=== PATIENT | female | born 1985 | race Caucasian/White ===

== ENCOUNTER 2016-10-28 15:46 | Outpatient (CLI) | payer MEDICAID | END 2016-10-28 15:47 | disposition home or self-care (01) | DX: Z11.3 Encounter for screening for infections with a predominantly sexual mode of transmission (principal); N76.0 Acute vaginitis ==

== ENCOUNTER 2016-11-27 09:39 | Outpatient (CLI) | payer MEDICAID | END 2016-11-27 09:40 | disposition home or self-care (01) | DX: A56.02 Chlamydial vulvovaginitis (principal) ==

== ENCOUNTER 2016-12-30 10:24 | Outpatient (CLI) | payer MEDICAID | END 2016-12-30 10:25 | disposition home or self-care (01) | DX: Z20.2 Contact with and (suspected) exposure to infections with a predominantly sexual mode of transmission (principal) ==

== ENCOUNTER 2017-03-02 07:17 | Outpatient (CLI) | payer MEDICAID | END 2017-03-02 07:18 | disposition home or self-care (01) | LOC: LAB.R 07:17 | PROVIDERS: ATTEND Physician Assistant | DX: Z20.2 Contact with and (suspected) exposure to infections with a predominantly sexual mode of transmission (principal) | CPT/HCPCS: 87491; 87591 ==

== ENCOUNTER 2017-03-30 08:46 | Outpatient (CLI) | payer MEDICAID | END 2017-03-30 08:47 | disposition home or self-care (01) | LOC: LAB.N 08:46 | PROVIDERS: ATTEND Physician Assistant | DX: Z20.2 Contact with and (suspected) exposure to infections with a predominantly sexual mode of transmission (principal) | CPT/HCPCS: 87491; 87591 ==

== ENCOUNTER 2017-04-10 07:45 | Outpatient (CLI) | payer MEDICAID | END 2017-04-10 07:46 | disposition home or self-care (01) | LOC: LAB.N 07:45 | PROVIDERS: ATTEND Physician Assistant | DX: Z11.3 Encounter for screening for infections with a predominantly sexual mode of transmission (principal) | CPT/HCPCS: 87491; 87591 ==

== ENCOUNTER 2017-07-17 06:37 | Outpatient (CLI) | payer MEDICAID ==
[2017-07-18 04:08] LABS: TEST RESULT REPORT
[2017-07-20 16:02] LABS: TEST RESULT REPORT
== END 2017-07-17 06:38 | disposition home or self-care (01) ==
LOC: LAB.N 06:37
PROVIDERS: ATTEND Nurse Practitioner Gerontology
DX: Z11.3 Encounter for screening for infections with a predominantly sexual mode of transmission (principal)
CPT/HCPCS: 36415; 81599; 86592; 86695; 86696; 86803; 87389; 87491; 87591

== ENCOUNTER 2017-09-23 14:14 | Outpatient (CLI) | payer MEDICAID ==
--- NOTE | 2017-09-27 16:27 | DEXA Report ---
DEXA: 09/23/2017. CLINICAL INDICATION: Depo use. TECHNIQUE: Dual energy x-ray absorptiometry (DXA) was performed on a [employer] system. Regions measured are the AP spine, femoral neck, and, if needed, forearm. COMPARISON: None. In accordance with the International Society for Clinical Densitometry (ISCD) guidelines, data from previous exams may be reanalyzed using current recommendations and techniques. This is done to allow a more accurate basis for comparison with the current study. FINDINGS The data for the lumbar spine is as follows: REGION BMD (g/cm/cm) T-SCORE Z-SCORE L1 1.179 0.4 -0.6 L2 1.387 1.6 0.5 L3 1.354 1.3 0.3 L4 1.175 -0.2 -1.2 L1-L4 1.272 0.8 -0.2 NOTE: All evaluable vertebrae are used for classification. The data for the hip is as follows: REGION BMD (g/cm/cm) T-SCORE Z-SCORE Neck 0.998 -0.3 -0.8 TOTAL 1.029 0.2 -0.5 NOTE: The femoral neck or total proximal femur, whichever is lowest, is used for classification. IMPRESSION THE WHO CLASSIFICATION BASED ON THE INTERNATIONAL REFERENCE STANDARD IS NORMAL. THE FRACTURE RISK IS NOT INCREASED. RECOMMENDATION: Patients with diagnosis of osteoporosis or osteopenia should have regular bone mineral density assessment. For those eligible for Medicare, routine testing is allowed once every 2 years. Testing frequency can be increased for patients who have rapidly progressing disease or for those who are receiving medical therapy to restore bone mass. COMMENT: World Health Organization (WHO) definitions for osteoporosis and osteopenia: NORMAL BMD: T-score at 1.0 or higher, fracture risk is low. OSTEOPENIA BMD: T-score between 1.0 and -2.5, fracture risk is increased. OSTEOPOROSIS BMD: T-score at 2.5 or lower, fracture risk high. National Osteoporosis Foundation recommends: 1. Obtain adequate dietary calcium (at least 1200 mg per day) and vitamin D (400 -800 international units per day). 2. Participate, as appropriate, in regular weightbearing and muscle- strengthening exercise. 3. Avoid tobacco use and reduce alcohol and caffeine intake. 4. For more detailed information see the website at www.NOF.org. TD: 09/24/2017 17:30 MTDD
== END 2017-09-23 14:15 | disposition home or self-care (01) ==
LOC: DI 14:14
PROVIDERS: ATTEND Nurse Practitioner Gerontology
DX: Z91.89 Other specified personal risk factors, not elsewhere classified (principal)
CPT/HCPCS: 77080

== ENCOUNTER 2017-10-21 10:27 | Outpatient (CLI) | payer MEDICAID ==
[2017-10-22 14:16] LABS: HIV AG/AB 4TH GEN NON-REACTIVE (NON-REACTIVE)
[2017-10-23 12:10] LABS: HSV 1 IGG TYPE SPECIFIC AB 13.7 index; HSV 2 IGG TYPE SPECIFIC AB 18.8 index
== END 2017-10-21 10:28 | disposition home or self-care (01) ==
LOC: LAB 10:27
PROVIDERS: ATTEND Nurse Practitioner Obstetrics & Gynecology
DX: N76.0 Acute vaginitis (principal)
CPT/HCPCS: 36415; 81599; 86695; 86696; 87086; 87389; 87529

== ENCOUNTER 2017-10-21 10:29 | Outpatient (CLI) | payer MEDICAID ==
[2017-10-23 14:06] LABS: HSV 2 DNA NOT DETECTED; SOURCE SWAB
== END 2017-10-21 10:30 | disposition home or self-care (01) ==
LOC: LAB.R 10:29
PROVIDERS: ATTEND Nurse Practitioner Obstetrics & Gynecology
DX: R30.0 Dysuria (principal); N76.0 Acute vaginitis
CPT/HCPCS: 87086; 87529

== ENCOUNTER 2017-12-16 09:13 | Day surgery (SDC) | payer MEDICAID ==
--- NOTE | 2017-12-14 15:02 | PREOP HISTORY & PHYSICAL ---
DATE OF SERVICE: 12/14/2017 Physician: Adalgisa Madrid, DO PREOPERATIVE HISTORY & PHYSICAL 12/14/2017 FOR ANTICIPATED DATE OF PROCEDURE: 12/16/2017 IDENTIFICATION: This is a 32-year-old, G1, P1-0-0-1. HISTORY OF PRESENT ILLNESS: The patient presents today for her preoperative visit. She has been scheduled for a 12/16/2017 laparoscopic bilateral salpingectomy. I had a discussion with the patient on 11/16/2017 regarding her options of control. They included the pill, the patch, NuvaRing, Nexplanon, Depo-Provera, and the IUDs. The patient is from her [facility] for over 2 years. The patient's daughter, Dena, is 4 years old now , and the patient does not want any more children. I discussed with her the risks, benefits, alternatives, indications, expectations of laparoscopic bilateral salpingectomy. Included in our discussion were the risk of hemorrhage , infection, damage to surrounding organs. With respect to damage to surrounding organs, this may include, but is not limited to, inadvertent laceration, cauterization or ligation of adjacent intestines, bladder, and ureters. This procedure is meant to be permanent and irreversible. Should she desire genetic children after this procedure, she would need to do in vitro fertilization, which is upwards of $30,000 currently. The most common complication with this procedure is regret. Also though the procedure may be performed ideally, there is intrinsic tubal failure risk of less than 1%. Should she feel that she is after this procedure, she is to call me immediately. After her questions were answered to her satisfaction, she verbalized her desire to proceed with surgery. Consent forms have been signed. Currently, she denies any nausea, vomiting, fevers, chills, diarrhea, constipation. PAST MEDICAL HISTORY 1. Obesity. 2. She denies any hypertension, diabetes, or thyroid disorder. PAST SURGICAL HISTORY 1. In 2002, tonsillectomy. 2. In 2013, delivery. 3. In 2013, laparoscopic cholecystectomy. ALLERGIES: NO KNOWN DRUG ALLERGIES. MEDICATIONS: None RX: Her pharmacy of choice is [facility] in [place], [place]. SOCIAL HISTORY: She denies any tobacco use. She does consume alcohol on a social basis. She denies any illicit drug use. She has a daughter, Dena, and she currently works at [employer]. PAST OBSTETRICAL HISTORY: One term delivery secondary to nonreassuring heart tones. PAST GYNECOLOGIC HISTORY: She does have HSV in which she needs to take acyclovir occasionally. She denies any abnormal Pap smears. FAMILY HISTORY: She denies any female carcinoma. REVIEW OF SYSTEMS: Negative unless otherwise stated. PHYSICAL EXAMINATION VITAL SIGNS: Weight is 210 pounds, height is 66 inches, BMI is 33.9. Blood pressure 122/84 GENERAL: She is a well-developed, well-nourished, female, in no apparent distress. She is alert and oriented x3. She is very pleasant and easy to speak to. CARDIOVASCULAR: Rate is regular. No murmurs or rubs. LUNGS: Lungs are clear to auscultation bilaterally. ABDOMEN: Soft, nontender. No masses, rebound, rigidity or guarding. She does have a well-healed Pfannenstiel skin incision as well as laparoscopic incisions from her 2014 cholecystectomy. ASSESSMENT 1. A 32-year-old, G1, P1-0-0-1. 2. Desired permanent sterilization. PLAN 1. We will proceed to a scheduled 12/16/2017 laparoscopic bilateral salpingectomy for sterilization. 2. She will get a urinalysis for test previous to surgery. 3. Prescriptions for pain control have been given to her. Handwritten prescription for Vicodin and a prescription for Motrin has been faxed to [facility]. 4. Anticipate seeing her in 2 weeks for routine 2-week postop visit. 5. We will do STD check on her after her postop visit since she is concerned that her boyfriend did not completely take his prescription for Flagyl. TD: 12/14/2017 12:30 ANICETO
[2017-12-16] MEDS ORDERED: CELECOXIB 100 MG CAPSULE PO ONE (09:15)
[2017-12-16] MEDS ORDERED: LACTATED RINGERS 1,000 ML IV ONE (09:35)
[2017-12-16] MEDS ORDERED: LIDOCAINE 1%-EPI 1:100000 20 ML MDV ONE (09:55)
[2017-12-16 09:56] LABS: HCG UR QUAL NEGATIVE
[2017-12-16] MEDS ORDERED: GLYCOPYRROLATE 1 MG/5 ML VIAL IVP ONE (11:00)
[2017-12-16] MEDS ORDERED: fentaNYL 250 MCG/5 ML VIAL IVP ONE (11:00)
[2017-12-16] MEDS ORDERED: PROPOFOL 200 MG/20 ML VIAL IVP ONE (11:00)
[2017-12-16] MEDS ORDERED: MIDAZOLAM 2 MG/2 ML VIAL IVP ONE (11:00)
[2017-12-16] MEDS ORDERED: DEXAMETHASONE 4 MG/ML VIAL IVP ONE (11:00)
[2017-12-16] MEDS ORDERED: ONDANSETRON 4 MG/2 ML VIAL IVP ONE (11:00)
[2017-12-16] MEDS ORDERED: KETOROLAC 30 MG/ML VIAL IVP ONE (11:00)
[2017-12-16] MEDS ORDERED: ROCURONIUM 50 MG/5 ML VIAL IVP ONE (11:00)
[2017-12-16] MEDS ORDERED: LIDOCAINE-MPF 2% 5 ML VIAL IM ONE (11:00)
[2017-12-16] MEDS ORDERED: LIDOCAINE 1%-EPI 1:100000 20 ML MDV SUBQ ONE ×2 (11:12)
[2017-12-16] MEDS ORDERED: BUPIVACAINE 0.5% PF 10 ML VIAL ONE (11:28)
[2017-12-16] MEDS ORDERED: BUPIVACAINE 0.5% PF 10 ML VIAL IM ONE (11:29)
--- NOTE | 2017-12-16 11:38 | OPERATIVE REPORT ---
Operative Report - General Procedure Date: 12/16/17 Planned Procedure: Sterilization via bilateral salpingectomy; possible lysis of adhesions Pre-Op Diagnosis: Desires sterilization, prior surgical history Procedure Performed: Laparoscopic bilateral salpingectomy; diagnostic laparoscopy Post Op Diagnosis: See sterilization; no significant intra-abdominal adhesions; No evidence of - Other Other Information/Narrative: Uneventful bilateral salpingectomy was accomplished. There was no evidence of endometriosis in the cul-de-sac ovaries or tubes. There was a filmy colonic adhesion at the pelvic brim there was stable not significant. There was evidence of fatty liver and the gallbladder bed was empty.
[2017-12-16] MEDS: HYDROmorphone 1 MG/ML CARPUJECT ONE ×2 (11:59→12:15)
[2017-12-16] MEDS ORDERED: ACETAMINOPHEN 1,000 MG/100 ML 100 ML IV ONE (12:20)
[2017-12-16 13:15] VITALS: BP 100/82
--- NOTE | 2017-12-16 15:46 | OPERATIVE REPORT ---
DATE OF SERVICE: 12/16/2017 Physician: Silvestre Lee MD PREOPERATIVE DIAGNOSES 1. Desires sterilization. 2. Prior history of surgery ( section and laparoscopic cholecystectomy) . 3. Obesity. POSTOPERATIVE DIAGNOSES 1. Desires sterilization. 2. Prior history of surgery ( section and laparoscopic cholecystectomy) . 3. Obesity. 4. Fatty liver. 5. No evidence of endometriosis or significant adhesions. PROCEDURES 1. Laparoscopic bilateral salpingectomy. 2. Diagnostic laparoscopy. SURGEON: Silvestre Lee MD, FACOG, FICS JUNIOR NETWORK ENGINEER: Hansa Aguilar, certified nurse pastrycook. ANESTHESIA TYPE: General, ET tube placed. BLOOD LOSS: Minimal, less than 50 mL. COMPLICATIONS: None. IVF: 1000 URINE: 100 FINDINGS Patient is morbidly obese with a Pfannenstiel scar that appears to be well healed and not adherent to the underlying fascia. There is no evidence of umbilical hernia or other hernias. Exam of the genitalia finds no vulvar lesions. Vagina has no significant prolapse. Cervix is normal in appearance without lesions. Uterus retroverted, retroflexed and normal size with normal contour. Both tubes appear to be open and fluffy. Tubes are normal with follicular activity present. Search of anterior and posterior cul-de-sac and ovarian fossa finds no endometriosis. There is a small filmy adhesion between the rectal colon at the pelvic brim that is not significant. Gallbladder is absent, but the liver appears to be with fatty changes. The appendix was not well seen. TECHNIQUE: Prior to the procedure, I met the patient and reviewed Dr. Madrid's history. We discussed the risks, benefits, and alternatives to her current surgery. She is aware that this is permanent sterilization, and if she has any doubts she should wait. Informed consent paperwork was then signed. Patient was brought to the operating room and placed in a supine position for administration of general anesthesia. She was uneventfully induced and intubated. She was then moved to the low dorsal lithotomy position on [facility]. She was prepped and draped in a customary sterile fashion. Timeout briefing was done per protocol. Bladder was drained, and a HUMI manipulator was placed. Small puncture wound was placed under the umbilical skin fold and direct entry technique used with a 5 mm Visiport trocar. The abdomen was insufflated with CO2 gas at 12 mm of pressure. Next, under direct visualization, right and left lower quadrant ports were placed. The abdomen was assessed and photographed. The right tube was then identified, grasped, and placed on medial tension. The mesenteric portion of the tube was then desiccated and divided using LigaSure. It was then removed intact and marked with a suture. Next, left tube was grasped, elevated, and removed in a similar fashion uneventfully. We checked all operative sites to ensure there was no unnoticed bleeding. At this point, the procedure was concluded. Patient remained in a 20 to 30-degree Trendelenburg as 1 liter of normal saline containing 10 mg of Marcaine was then instilled in the abdominal cavity. The fluid was then used to displace any CO2, and all CO2 was removed via the 5 mm trocars. Trocars were removed. The skin was closed with interrupted subcuticular stitches of 4-0 Monocryl and dressed with Dermabond. Additional 20 mL of 0.5% Marcaine was placed into the wounds. HUMI uterine manipulator was uneventfully removed. Patient was returned to supine. She was uneventfully awakened and taken to the recovery room in good condition. Intraoperative events were reviewed with the patient postop. She is scheduled for pathology and wound check in 2 weeks. Patient was prepared for discharge. Warning sign and callback instructions were reviewed. DISCHARGE MEDICATIONS 1. Motrin 600 mg q.6 hours for a 7-day course. 2. Hydrocodone 5 mg q.4 hours p.r.n. breakthrough pain. 3. Colace 250 b.i.d. for constipation prevention. TD: 12/16/2017 13:08 ANICETO
== END 2017-12-16 09:14 | disposition home or self-care (01) ==
LOC: SDS 09:13
PROVIDERS: ATTEND Obstetrics & Gynecology
PROC: 0UT74ZZ Resection of Bilateral Fallopian Tubes, Percutaneous Endoscopic Approach (ICD-10-PCS; principal; 2017-12-16 10:30)
DX: Z30.2 Encounter for sterilization (principal); E66.9 Obesity, unspecified; Z68.33 Body mass index [BMI] 33.0-33.9, adult; K76.0 Fatty (change of) liver, not elsewhere classified; Z90.49 Acquired absence of other specified parts of digestive tract
CPT/HCPCS: 58661; 81025; A9270; J0131; J1170; J3010; J7120

== ENCOUNTER 2017-12-30 10:00 | Outpatient (CLI) | payer MEDICAID | END 2017-12-30 10:01 | disposition home or self-care (01) | LOC: LAB.R 10:00 | PROVIDERS: ATTEND Nurse Practitioner Obstetrics & Gynecology | DX: N76.0 Acute vaginitis (principal); Z11.3 Encounter for screening for infections with a predominantly sexual mode of transmission; K76.0 Fatty (change of) liver, not elsewhere classified | CPT/HCPCS: 36415; 80053; 80061; 82977; 83721; 87480; 87491; 87510; 87591; 87660 ==

== ENCOUNTER 2017-12-30 11:31 | Outpatient (CLI) | payer MEDICAID ==
[2017-12-30 13:38] LABS: ALBUMIN 4.2 g/dL (3.2-5.5); ALBUMIN/GLOBULIN RATIO 1.3 (1.0-2.2); ALKALINE PHOSPHATASE 51 IU/L (42-121); ALT ALANINE AMINOTRANSFERASE 26 IU/L (10-60); AST ASPARTATE AMINOTRANSFERASE 21 IU/L (10-42); BILIRUBIN,TOTAL 0.4 mg/dL (0.2-1.0); BUN - BLOOD UREA NITROGEN 15 mg/dL (6-20); CALCIUM 8.9 mg/dL (8.5-10.3); CARBON DIOXIDE - CO2 27 mmol/L (21-32); CHLORIDE 105 mmol/L (101-111); CHOL/HDL RATIO 4.1 (<4.4); CHOLESTEROL 170 mg/dL; CREATININE 0.5 mg/dL (0.4-1.0); GAMMA GLUTAMYL TRANSPEPTIDASE 16 IU/L (8-38); GFR - MDRD 144 (>89); GLUCOSE 86 mg/dL (70-100); HDL CHOLESTEROL 41 mg/dL; LDL CHOLESTEROL,CALCULATED 120 mg/dL; LDL/HDL RATIO 2.9 (<4.4); SODIUM 137 mmol/L (135-145); TOTAL PROTEIN 7.5 g/dL (6.7-8.2); VLDL CHOLESTEROL 9 mg/dL
== END 2017-12-30 11:32 | disposition home or self-care (01) ==
LOC: LAB.N 11:31
PROVIDERS: ATTEND Nurse Practitioner
DX: K76.0 Fatty (change of) liver, not elsewhere classified (principal)
CPT/HCPCS: 36415; 80053; 80061; 82977; 83721

== ENCOUNTER 2018-03-10 08:00 | Outpatient (CLI) | payer MEDICAID | END 2018-03-10 08:01 | disposition home or self-care (01) | LOC: LAB.R 08:00 | PROVIDERS: ATTEND Registered Nurse | DX: Z11.3 Encounter for screening for infections with a predominantly sexual mode of transmission (principal) | CPT/HCPCS: 87480; 87491; 87510; 87591; 87660 ==

== ENCOUNTER 2018-03-10 08:00 | Outpatient (CLI) | payer MEDICAID ==
[2018-03-11 08:25] LABS: HEPATITIS C ANTIBODY NON-REACTIVE (NON-REACTIVE)
[2018-03-11 15:43] LABS: HIV AG/AB 4TH GEN NON-REACTIVE (NON-REACTIVE)
== END 2018-03-10 08:01 | disposition home or self-care (01) ==
LOC: LAB.N 08:00
PROVIDERS: ATTEND Registered Nurse
DX: Z11.3 Encounter for screening for infections with a predominantly sexual mode of transmission (principal)
CPT/HCPCS: 36415; 81599; 86592; 86803; 87389; 87480; 87491; 87510; 87591; 87660

== ENCOUNTER 2018-07-06 11:43 | Outpatient (CLI) | payer MEDICAID ==
[2018-07-07 13:36] LABS: HIV AG/AB 4TH GEN NON-REACTIVE (NON-REACTIVE)
== END 2018-07-06 11:44 | disposition home or self-care (01) ==
LOC: LAB.N 11:43
PROVIDERS: ATTEND Nurse Practitioner Gerontology
DX: Z11.3 Encounter for screening for infections with a predominantly sexual mode of transmission (principal)
CPT/HCPCS: 36415; 81599; 86592; 87389; 87491; 87591

== ENCOUNTER 2019-03-01 08:00 | Outpatient (CLI) | payer MEDICAID, OTHER ==
[2019-03-01 21:21] LABS: CANDIDA GROUP DNA NEGATIVE (NEGATIVE); CANDIDA KRUSEI DNA NEGATIVE (NEGATIVE); TRICHOMONAS VAGINALIS DNA NEGATIVE (NEGATIVE)
[2019-03-01 22:13] LABS: TRICHOMONAS VAGINALIS DNA NEGATIVE (NEGATIVE)
== END 2019-03-01 23:59 | disposition home or self-care (01) ==
LOC: LAB 08:00
PROVIDERS: ATTEND Obstetrics & Gynecology
DX: Z01.419 Encounter for gynecological examination (general) (routine) without abnormal findings (principal); Z86.19 Personal history of other infectious and parasitic diseases
CPT/HCPCS: 87491; 87591; 87661; 87801

== ENCOUNTER 2019-03-13 19:33 | Emergency (ER) | payer OTHER ==
[2019-03-13 19:42] VITALS: BP 123/67
--- NOTE | 2019-03-13 19:56 | ED Physician Documentation ---
PD HPI URI - Stated complaint Stated Complaint: COLD/SORE THROAT - Chief complaint Chief Complaint: Heent - History obtained from History obtained from: Patient - History of Present Illness Timing - onset: Other (3 weeks sore throat despite taking OTC nyquil etc. Noted exudates this morning, but has H/O tonsillectomy. Had F/C at the outset, not now. 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 SPECIALIST: section HEENT: Tonsil/Adenoidectomy, Other - Present Medications Home Medications: Ambulatory Orders Medication Instructions Recorded Confirmed Metronidazole 500 mg PO BID 03/13/19 03/13/19 - Allergies Allergies/Adverse Reactions: Allergies Allergy/AdvReac Type Severity Reaction Status Date / Time No Known Drug Allergies Allergy Verified 03/13/19 19:39 - Social History Does the pt smoke?: No Smoking Status: Never smoker Does the pt drink ETOH?: No Does the pt have substance abuse?: No - Immunizations Immunizations are current?: Yes - POLST Patient has POLST: No PD ED PE NORMAL - Vitals Vital signs reviewed: Yes - General General: Alert and oriented X 3, No acute distress - HEENT HEENT: Ears normal, Pharynx benign - Neck Neck: Supple, no meningeal sign, No bony TTP - Cardiac Cardiac: RRR, No murmur - Respiratory Respiratory: No respiratory distress, Clear bilaterally - Abdomen Abdomen: Non tender - Neuro Neuro: Alert and oriented X 3, Normal speech - Psych Psych: Normal mood, Normal affect Results - Vitals Vitals: Vital Signs - 24 hr 03/13/19 19:36 Temperature 36.8 C Heart Rate 80 Respiratory 18 Rate Blood Pressure 123/67 O2 Saturation 99 Oxygen O2 Source Room air - Labs Labs: Laboratory Tests 03/13/19 19:41 Group A Strep Rapid Negative Departure - Departure Disposition: 01 Home, Self Care Clinical Impression: Viral URI with cough Condition: Good Record reviewed to determine appropriate education?: Yes Health Concerns: URI Plan of Treatment: Conservative care, OTC meds Care Goals: wanted to make sure not strep, rapid test neg, culture to follow Instructions: ED Viral Syndrome
== END 2019-03-13 20:10 | disposition home or self-care (01) ==
LOC: ED 19:33
DX: J06.9 Acute upper respiratory infection, unspecified (principal)
CPT/HCPCS: 87070; 87430; 99282

== ENCOUNTER 2019-11-08 07:00 | Outpatient (CLI) | payer MEDICAID ==
[2019-11-09 21:27] LABS: CANDIDA GROUP DNA NEGATIVE (NEGATIVE); CANDIDA KRUSEI DNA NEGATIVE (NEGATIVE); TRICHOMONAS VAGINALIS DNA NEGATIVE (NEGATIVE)
== END 2019-11-08 23:59 | disposition home or self-care (01) ==
LOC: LAB.R 07:00
PROVIDERS: ATTEND Advanced Practice Midwife
DX: N89.8 Other specified noninflammatory disorders of vagina (principal)
CPT/HCPCS: 87661; 87801

== ENCOUNTER 2019-11-08 14:37 | Outpatient (CLI) | payer MEDICAID ==
[2019-11-09 12:02] LABS: HEPATITIS B SURFACE ANTIGEN NON-REACTIVE (NON-REACTIVE)
[2019-11-09 12:35] LABS: HEPATITIS C ANTIBODY NON-REACTIVE (NON-REACTIVE)
[2019-11-09 13:47] LABS: HIV AG/AB 4TH GEN NON-REACTIVE (NON-REACTIVE)
== END 2019-11-08 14:38 | disposition home or self-care (01) ==
LOC: LAB 14:37
PROVIDERS: ATTEND Advanced Practice Midwife
DX: Z11.3 Encounter for screening for infections with a predominantly sexual mode of transmission (principal); N89.8 Other specified noninflammatory disorders of vagina
CPT/HCPCS: 36415; 81599; 86592; 86803; 87340; 87389; 87661; 87801

== ENCOUNTER 2019-11-30 07:00 | Outpatient (CLI) | payer MEDICAID ==
[2019-11-30 20:51] LABS: TRICHOMONAS VAGINALIS DNA NEGATIVE (NEGATIVE)
[2019-11-30 22:03] LABS: CANDIDA GROUP DNA POSITIVE (NEGATIVE); CANDIDA KRUSEI DNA NEGATIVE (NEGATIVE); TRICHOMONAS VAGINALIS DNA NEGATIVE (NEGATIVE)
== END 2019-11-30 23:59 | disposition home or self-care (01) ==
LOC: LAB.R 07:00
PROVIDERS: ATTEND Advanced Practice Midwife
DX: Z11.3 Encounter for screening for infections with a predominantly sexual mode of transmission (principal)
CPT/HCPCS: 87491; 87591; 87661; 87801

== ENCOUNTER 2020-12-03 08:00 | Outpatient (CLI) | payer MEDICAID ==
[2020-12-03 20:38] LABS: BACTERIAL VAGINOSIS DNA NEGATIVE (NEGATIVE); CANDIDA GLABRATA DNA NEGATIVE (NEGATIVE); CANDIDA GROUP DNA NEGATIVE (NEGATIVE); CANDIDA KRUSEI DNA NEGATIVE (NEGATIVE); TRICHOMONAS VAGINALIS DNA NEGATIVE (NEGATIVE)
== END 2020-12-03 23:59 | disposition home or self-care (01) ==
LOC: LAB.R 08:00
PROVIDERS: ATTEND Obstetrics & Gynecology
DX: N76.0 Acute vaginitis (principal)
CPT/HCPCS: 87661; 87801

== ENCOUNTER 2021-01-18 08:00 | Outpatient (CLI) | payer MEDICAID ==
[2021-01-18 17:56] LABS: HCT - HEMATOCRIT 39.5 % (37.0-47.0); HGB - HEMOGLOBIN 12.9 g/dL (12.0-16.0); MEAN CORPUSCULAR HEMOGLOBIN 30.4 pg (27.0-31.0); MEAN CORPUSCULAR HGB CONC 32.7 g/dL (32.0-36.0); MEAN CORPUSCULAR VOLUME 93.2 fL (81.0-99.0); MEAN PLATELET VOLUME 11.2 fL (7.9-10.8); RED BLOOD COUNT 4.24 10^6/uL (4.20-5.40); RED CELL DISTRIBUTION WIDTH 12.7 % (12.0-15.0); WHITE BLOOD COUNT 7.9 x10^3/uL (4.8-10.8)
[2021-01-18 18:19] LABS: ALBUMIN 4.3 g/dL (3.2-5.5); ALBUMIN/GLOBULIN RATIO 1.5 (1.0-2.2); ALKALINE PHOSPHATASE 53 IU/L (42-121); ALT ALANINE AMINOTRANSFERASE 13 IU/L (10-60); AST ASPARTATE AMINOTRANSFERASE 15 IU/L (10-42); BILIRUBIN,TOTAL 0.6 mg/dL (0.2-1.0); BUN - BLOOD UREA NITROGEN 20 mg/dL (6-20); CARBON DIOXIDE - CO2 25 mmol/L (21-32); CHLORIDE 104 mmol/L (101-111); CHOL/HDL RATIO 3.5 (<4.4); CHOLESTEROL 176 mg/dL; CREATININE 0.7 mg/dL (0.4-1.0); GFR - MDRD 96 (>89); GLUCOSE 102 mg/dL (70-100); HDL CHOLESTEROL 50 mg/dL; LDL CHOLESTEROL,CALCULATED 101 mg/dL; POTASSIUM 3.7 mmol/L (3.5-5.0); SODIUM 137 mmol/L (135-145); TOTAL PROTEIN 7.2 g/dL (6.7-8.2); TRIGLYCERIDES 126 mg/dL; VLDL CHOLESTEROL 25 mg/dL
[2021-01-18 18:43] LABS: THYROID STIMULATING HORMONE 0.88 uIU/mL (0.34-5.60)
[2021-01-18 20:18] LABS: ESTIMATED AVERAGE GLUCOSE 97 mg/dL (70-100)
[2021-01-19 12:06] LABS: HEPATITIS C ANTIBODY NON-REACTIVE (NON-REACTIVE)
[2021-01-19 13:11] LABS: HIV AG/AB 4TH GEN NON-REACTIVE (NON-REACTIVE)
[2021-01-19 13:42] LABS: HEPATITIS B SURFACE ANTIGEN NON-REACTIVE (NON-REACTIVE)
== END 2021-01-18 23:59 | disposition home or self-care (01) ==
LOC: LAB.WCP 08:00
PROVIDERS: ATTEND Obstetrics & Gynecology
DX: Z00.00 Encounter for general adult medical examination without abnormal findings (principal); Z13.220 Encounter for screening for lipoid disorders; Z11.3 Encounter for screening for infections with a predominantly sexual mode of transmission; K76.0 Fatty (change of) liver, not elsewhere classified; Z13.1 Encounter for screening for diabetes mellitus; E04.9 Nontoxic goiter, unspecified
CPT/HCPCS: 36415; 80053; 80061; 83036; 83721; 84443; 85027; 86592; 86803; 87340; 87389

== ENCOUNTER 2022-10-23 19:23 | Emergency (ER) | payer MEDICAID ==
[2022-10-23] MEDS ORDERED: ALBUTEROL 1 PUFF INH STA (20:14)
--- NOTE | 2022-10-23 21:05 | ED Physician Documentation ---
History of Present Illness - Stated complaint Stated Complaint: [id number],SORE THROAT - Chief complaint Chief Complaint: Resp - Additonal information Additional information: 37-year-old female presents emergency department for evaluation of 3 weeks of cough congestion. States the first week she had fevers none since however despite DayQuil and NyQuil and cough drops she continues to have a productive cough. She coughs at all times especially when taking deep breaths. She denies any chest pain. No posttussive emesis. No hemoptysis. Non-smoker. Patient is reliable historian Review of Systems Constitutional: denies: Fever, Chills Respiratory: reports: Cough. denies: Dyspnea, Hemoptysis, Wheezing PD PAST MEDICAL HISTORY - Past Medical History Past Medical History: Yes Cardiovascular: None Respiratory: Asthma Neuro: None Endocrine/Autoimmune: None GI: None THEATRICAL PERFORMER: None : None HEENT: None Psych: Anxiety Musculoskeletal: None Derm: None - Past Surgical History Past Surgical History: Yes General: Cholecystectomy /THEATRICAL PERFORMER: section HEENT: Tonsil/Adenoidectomy, Other - Present Medications Home Medications: Ambulatory Orders Medication Instructions Recorded Confirmed Albuterol Sulf [Ventolin Hfa 1 - 2 puffs INH Q4HR PRN #1 each 10/23/22 Inhaler] Azithromycin [Zithromax] 0 mg PO DAILY #6 tablet 10/23/22 Benzonatate [Tessalon] 200 mg PO TID PRN #20 cap 10/23/22 - Allergies Allergies/Adverse Reactions: Allergies Allergy/AdvReac Type Severity Reaction Status Date / Time No Known Drug Allergies Allergy Verified 03/13/19 19:39 - Social History Does the pt smoke?: No Smoking Status: Never smoker Does the pt drink ETOH?: No Does the pt have substance abuse?: No - Immunizations Immunizations are current?: Yes - POLST Patient has POLST: No PD ED PE NORMAL - General General: Alert and oriented X 3, No acute distress, Well developed/nourished - HEENT HEENT: Atraumatic, Moist mucous membranes - Neck Neck: Supple, no meningeal sign, No adenopathy - Cardiac Cardiac: RRR, No murmur - Respiratory Respiratory: No respiratory distress, Clear bilaterally - Abdomen Abdomen: Normal bowel sounds, Soft Results - Vitals Vitals: Vital Signs - 24 hr 10/23/22 10/23/2223 19:30 19:42 20:10 Temperature 36.1 C L Heart Rate 80 91 Respiratory 16 17 20 Rate Blood Pressure 127/71 O2 Saturation 100 100 10/23/22 10/23/22 20:40 20:54 Temperature Heart Rate 90 105 H Respiratory 20 17 Rate Blood Pressure O2 Saturation 98 Oxygen O2 Source Room air - Rads (name of study) cxr Radiology: EMP read indepedently (no fracture) PD Medical Decision Making - ED course Complexity details: reviewed results, considered differential, d/w patient ED course: 37-year-old female presents emergency department for evaluation of 3 weeks cough that was initially precipitated by fevers but none now for quite some time. Cough is productive. No hemoptysis. Coworkers and children have been sick at home with similar. Cardiopulmonary auscultation was generally very clear but deep breathing did cause some coughing spasms. She was administered albuterol with a spacer at the bedside and on repeat evaluation she does have reduced cough. There is no hypoxia. Chest x-ray per my interpretation was without acute focal infiltrate. Clinically she does not present as having a bacterial pneumonia. Patient will be discharged with prescription for azithromycin to treat bronchitis. Given improvement with albuterol will also send that to the pharmacy and prescription for Tessalon Perles. We discussed the usual emergent return precautions. Departure - Departure Disposition: 01 Home, Self Care Clinical Impression: Acute bronchitis Qualifiers: Bronchitis organism: unspecified organism Qualified Code(s): J20.9 - Acute bronchitis, unspecified Condition: Stable Record reviewed to determine appropriate education?: Yes Prescriptions: Albuterol Sulf [Ventolin Hfa Inhaler] 1 - 2 puffs INH Q4HR PRN #1 each PRN Reason: Shortness Of Air/Wheezing Benzonatate [Tessalon] 200 mg PO TID PRN #20 cap PRN Reason: Cough Azithromycin [Zithromax] 0 mg PO DAILY #6 tablet Comments: Pamela has had a cough for about 3 weeks. This most likely started as a viral upper respiratory infection but as the cough has not improved now it is appropriate to consider short course of antibiotics. The azithromycin has been sent to the [facility] in [place]. I have also prescribed some albuterol. You can use this with your spacer 4-6 times a day it can help with cough. Tessalon Perles were also prescribed. Recommend that you stay home from work until Thursday. Get plenty of rest. If at any point you feel that your symptoms are worsening, you develop uncontrolled vomiting, have fevers then please return to the ER for second evaluation
[2022-10-23 21:23] VITALS: BP 106/76
--- NOTE | 2022-10-23 22:03 | XRAY Report ---
PROCEDURE: Chest 1 View X-Ray INDICATIONS: chest pain TECHNIQUE: One view of the chest was acquired. COMPARISON: None. FINDINGS: Surgical changes and devices: None. Lungs and pleura: No pleural effusions or pneumothorax. Lungs are clear. Mediastinum: Mediastinal contours appear normal. Heart size is normal. Bones and chest wall: No suspicious bony lesions. Overlying soft tissues appear unremarkable. IMPRESSION: 1. No acute cardiopulmonary disease. Reviewed by: Luke Leon MD on 10/23/2022 10:02 PM [facility] Approved by: Luke Leon MD on 10/23/2022 10:02 PM [facility] Station ID: [id number]
== END 2022-10-23 21:23 | disposition home or self-care (01) ==
LOC: ED 19:23
DX: J20.9 Acute bronchitis, unspecified (principal); J45.909 Unspecified asthma, uncomplicated
CPT/HCPCS: 94640; 99283; 99284

== ENCOUNTER 2022-12-15 22:20 | Emergency (ER) | payer MEDICAID ==
[2022-12-15] MEDS ORDERED: oxyCODONE 5 MG TABLET PO STA (22:42)
[2022-12-15] MEDS ORDERED: oxyCODONE/ACET 5/325 Prepack 4 PO STA (23:09)
--- NOTE | 2022-12-15 23:13 | ED Physician Documentation ---
PD HPI LOWER EXT INJURY - Stated complaint Stated Complaint: RT ANKL PX - Chief complaint Chief Complaint: Trauma Ext - History obtained from History obtained from: Patient - Additional information Additional information: Patient is a 37-year-old female presenting for evaluation of right ankle injury that occurred just prior to arrival. She accidentally slipped on the stairs and slid down 2-3 steps and twisted her ankle.She denies hitting her head or LOC. She denies injuries elsewhere. She does not take a blood thinner. 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 HEENT: Tonsil/Adenoidectomy, Other - Present Medications Home Medications: Ambulatory Orders Medication Instructions Recorded Confirmed Albuterol Sulf [Ventolin Hfa 1 - 2 puffs INH Q4HR PRN #1 each 10/23/22 Inhaler] Azithromycin [Zithromax] 0 mg PO DAILY #6 tablet 10/23/22 Benzonatate [Tessalon] 200 mg PO TID PRN #20 cap 10/23/22 Oxycodone HCl/Acetaminophen 1 each PO Q6H PRN #10 tablet 12/15/22 [Percocet 5-325 mg Tablet] - Allergies Allergies/Adverse Reactions: Allergies Allergy/AdvReac Type Severity Reaction Status Date / Time No Known Drug Allergies Allergy Verified 12/15/22 22:24 - Social History Does the pt smoke?: No Smoking Status: Never smoker Does the pt drink ETOH?: No Does the pt have substance abuse?: No - Immunizations Immunizations are current?: Yes - POLST Patient has POLST: No PD ED PE NORMAL - General General: Alert and oriented X 3, No acute distress, Well developed/nourished - HEENT HEENT: Atraumatic - Neck Neck: Supple, no meningeal sign, No bony TTP, C-Spine cleared by NEXUS criteria - Cardiac Cardiac: Strong equal pulses - Respiratory Respiratory: No respiratory distress - Derm Derm: Warm and dry - Extremities Extremities: Other (Tenderness and swelling to lateral right ankle, distal pulses intact, Able to plantar and dorsiflex at the right ankle, sensation intact, no tenderness more proximally in the right lower extremity or over the foot; Compartments of extremity are soft) - Neuro Neuro: Alert and oriented X 3, No motor deficit, No sensory deficit, Normal speech Results - Vitals Vitals: Vital Signs - 24 hr 12/15/22 12/15/22 22:24 23:41 Temperature 36.5 C Heart Rate 98 78 Respiratory 16 16 Rate Blood Pressure 117/75 128/62 O2 Saturation 97 100 Oxygen O2 Source Room air PD Medical Decision Making - ED course Complexity details: reviewed results, re-evaluated patient ED course: Patient presenting for evaluation of right ankle injury after slipping on the stairs. There is no head injury. She has mild swelling and tenderness to the lateral right ankle. An x-ray was obtained which I reviewed I do not see signs of a fracture or dislocation. Patient was placed into an Aircast and given crutches. She was advised on continuing with supportive care as well as need for close follow-up if her symptoms or not improving. She is advised on concerning symptoms to return for Departure - Departure Disposition: 01 Home, Self Care Clinical Impression: Right ankle injury Condition: Stable Instructions: ED Sprain Ankle Prescriptions: Oxycodone HCl/Acetaminophen [Percocet 5-325 mg Tablet] 1 each PO Q6H PRN #10 tablet PRN Reason: pain Comments: Your x-ray does not show a broken or out of place bone. However you could have sprained a ligament or other structure in the ankle.We are giving you an Aircast and crutches and I would recommend using these to ambulate as long as it is hurting to put weight on your foot. Please continue with ice, elevating, rest and anti-inflammatories. I have also sent a small prescription of narcotic pain medication to [facility] in [place]. If your symptoms are not improving then I would recommend close follow-up with your primary care doctor. I am prescribing a short course of narcotic pain medication for you. These are potentially dangerous and addictive medications that should be used carefully. These medications may constipate you. Take an [id number] stool softener (docusate) twice daily with plenty of water while taking these medications. If you go 24 hours without a bowel movement, take [id number] miralax, per package instructions. Do not drink or drive while taking these medications. If you received narcotic or sedating medications while in the emergency department, do not drive for 24 hours. Store this medication in a safe, secure place and out of reach of children. It is a violation of federal law to give or sell this medication to another person or to use in a manner other than prescribed. The ED will not refill narcotic prescriptions, including prescriptions lost or stolen. To dispose of unwanted medications: 1. [facility] [address] in [place] has a medication drop box. They accept prescription medications (in pill form) Thursday through Thursday 9:00 a.m. to 5:00 p.m. 2. The [facility] [employer] accepts prescription medications (in pill form only) for disposal year round. Call for more informatio n. 3. Contact the [facility] for the next [facility] sponsored prescription drug collection event. , x7310, or [phone]; Note that many narcotic pain relievers also contain Tylenol/acetaminophen. Please ensure that your total dose of acetaminophen from all sources does not exceed 3 g (3000 mg) per day. Forms: Activity restrictions Discharge Date/Time: 12/15/22 23:41
--- NOTE | 2022-12-15 23:31 | XRAY Report ---
PROCEDURE: Ankle 3 View RT INDICATIONS: Trauma TECHNIQUE: 3 views of the ankle were acquired. COMPARISON: None. FINDINGS: Bones: No fractures or dislocations. Ankle mortise is normally aligned. No suspicious bony lesions . Soft tissues: There is a small tibiotalar joint effusion. There is periarticular soft tissue swellin g anterolaterally. Achilles tendon appears normal. IMPRESSION: 1. No fracture or dislocation. 2. Small tibiotalar joint effusion. Reviewed by: Luke Leon MD on 12/15/2022 11:30 PM PDT Approved by: Luke Leon MD on 12/15/2022 11:30 PM PDT Station ID: [id number]
[2022-12-15 23:41] VITALS: BP 128/62
== END 2022-12-15 23:41 | disposition home or self-care (01) ==
LOC: ED 22:20
DX: S99.911A Unspecified injury of right ankle, initial encounter (principal); X50.1XXA Overexertion from prolonged static or awkward postures, initial encounter
CPT/HCPCS: 73610; 99283; A9270

== ENCOUNTER 2022-12-30 15:35 | Outpatient (CLI) | payer MEDICAID ==
--- NOTE | 2022-12-30 17:03 | XRAY Report ---
PROCEDURE: Ankle 3 View RT INDICATIONS: RIGHT ANKLE PAIN/INJURY TECHNIQUE: 3 views of the ankle were acquired. COMPARISON: 12/15/2022 FINDINGS: Bones: No fractures or dislocations. Ankle mortise is normally aligned. No suspicious bony lesions . Soft tissues: No tibiotalar joint effusion. IMPRESSION: No acute bony abnormality. If symptoms persist, follow-up radiographs and/or CT or MRI may be helpful for further evaluation. Reviewed by: Stephen Brunson MD on 12/30/2022 5:02 PM PDT Approved by: Stephen Brunson MD on 12/30/2022 5:02 PM PDT Station ID: [id number]
== END 2022-12-30 15:36 | disposition home or self-care (01) ==
LOC: DI.WOS 15:35
PROVIDERS: ATTEND Physician Assistant Surgical
DX: M25.571 Pain in right ankle and joints of right foot (principal)

== ENCOUNTER 2023-02-02 12:18 | Emergency (ER) | payer MEDICAID ==
[2023-02-02 12:43] VITALS: BP 114/70
== END 2023-02-02 14:56 | disposition left against medical advice (07) ==
LOC: ED 12:18
DX: Z53.21 Procedure and treatment not carried out due to patient leaving prior to being seen by health care provider (principal)